=== PATIENT | male | born 1940 | race Caucasian/White ===

== ENCOUNTER 2023-10-13 09:23 | Inpatient (IN) | payer MEDICARE ==
[~2023-10-13] VITALS: Ht 188 cm; Wt 81.7 kg
[~2023-10-13 09:23] MED LIST: DIOVAN; ZETIA; [UNRECOGNIZED DRUG - OTHER]
[2023-10-13] MEDS: IV NORMAL SALINE 1000 ML BAG IV ONE (09:50)
[2023-10-13] MEDS ORDERED: CEFEPIME HCL 1 G VIAL ONE (09:53)
[2023-10-13] MEDS ORDERED: DEXAMETHASONE SOD PHOSPHATE 4 MG INJ ONE (09:54)
[2023-10-13] MEDS ORDERED: AZITHROMYCIN 250 MG TABLET ONE (09:54)
[2023-10-13 09:57] LABS: BASOPHILS % (AUTO) 0.3 % (0.0-2.0); EOSINOPHILS # (AUTO) 0.1 K/uL (0.0-0.7); EOSINOPHILS % (AUTO) 0.4 % (0.0-7.0); HEMATOCRIT 45.2 % (36.7-47.1); HEMOGLOBIN 13.7 g/dL (12.5-16.3); LYMPHOCYTES # (AUTO) 0.6 K/uL (0.8-4.8); MEAN CORPUSCULAR HEMOGLOBIN 28.8 uug (23.8-33.4); MEAN CORPUSCULAR HGB CONC 30 g/dL (32.5-36.3); MEAN CORPUSCULAR VOLUME 95.1 fL (73.0-96.2); MONOCYTES # (AUTO) 2.3 K/uL (0.1-1.30); NEUTROPHILS # (AUTO) 13.1 K/uL (1.8-8.9); NEUTROPHILS % (AUTO) 81.3 % (38.5-71.5); PLATELET COUNT (AUTO) 294 K/uL (152-348); RED BLOOD CELL COUNT(AUTO) 4.76 MIL/uL (4.06-5.63); RED CELL DISTRIBUTION WIDTH 21.8 % (12.1-16.2); WHITE BLOOD COUNT (AUTO) 16.2 K/uL (3.6-10.2)
[2023-10-13 10:00] LABS: *BILIRUBIN,URIN NEGATIVE (NEGATIVE); *BLOOD, URINE 3+ (NEGATIVE); *CLARITY,URINE SLIGHTLY CLOUDY (CLEAR); *COLOR,URINE YELLOW (YELLOW); *KETONES,URINE NEGATIVE (NEGATIVE); *PROTEIN,URINE 2+ (NEGATIVE); *UROBILINOGEN,URINE 0.2 E.U./dl (NORMAL); LEUKOCYTE ESTERASE ,URINE 2+ (NEGATIVE); NITRITE, URINE NEGATIVE (NEGATIVE); UGLUCOSE NEGATIVE (NEGATIVE)
[2023-10-13] MEDS: DEXAMETHASONE SOD PHOSPHATE 4 MG INJ IV ONE (10:02)
[2023-10-13] MEDS: AZITHROMYCIN 250 MG TABLET PO ONE (10:02)
[2023-10-13] MEDS: CEFEPIME HCL 2 G in IV DEXTROSE 5% 100 ML IV ONE (10:02)
[2023-10-13 10:06] LABS: CALCIUM 9.2 mg/dL (8.5-10.1); CARBON DIOXIDE 23 mmol/L (21-32); CHLORIDE 101 mmol/L (98-107); CREATININE 2.6 mg/dL (0.6-1.3); GLUCOSE 240 mg/dL (74-106); POTASSIUM 5.2 mmol/L (3.5-5.1); SODIUM SERUM 138 mmol/L (136-145); UREA NITROGEN, BLOOD 58 mg/dL (7-18)
[2023-10-13 10:07] LABS: DIFFERENTIAL COMMENT 1
[2023-10-13 10:10] LABS: RBC,URINE 20-50 /HPF (0-3); WBC,URINE 80-100 /HPF (0-3)
[2023-10-13 10:11] LABS: BACTERIA,URINE MANY /HPF (NONE SEEN); SQUAMOUS EPITHELIAL CELL,UR FEW /HPF (NONE SEEN)
[2023-10-13 10:17] LABS: LACTIC ACID 6.9 mmol/L (0.4-2.0)
[2023-10-13 10:19] LABS: ALANINE AMINOTRANSFERASE 22 U/L (16-63); ALBUMIN 2.3 g/dL (3.4-5.0); ALKALINE PHOSPHATASE 81 U/L (50-136); ASPARTATE AMINOTRANSFERASE 9 U/L (15-37); BILIRUBIN,DIRECT 0.4 mg/dL (0.0-0.2); NT-PRO BNP 26033 pg/mL (0-125); TOTAL PROTEIN, SERUM 6.6 g/dL (6.4-8.2)
[2023-10-13] MEDS ORDERED: FUROSEMIDE 40 MG/4 ML VIAL ONE (10:48)
[2023-10-13] MEDS ORDERED: NITROGLYCERIN OINT 1 GM PACKET TP ONE (10:48)
[2023-10-13] MEDS: FUROSEMIDE 40 MG/4 ML VIAL IV ONE (10:52)
[2023-10-13] MEDS: NITROGLYCERIN OINT 1 GM PACKET TP ONE (10:52)
[2023-10-13] MEDS ORDERED: HEPARIN/D5W 25000 UNITS/500 ML BAG IV ONE ×2 (11:15→13:30)
[2023-10-13] MEDS ORDERED: HEPARIN SODIUM,PORCINE 5,000 UNITS/ML VIAL ONE (11:27)
[2023-10-13] MEDS: HEPARIN SODIUM,PORCINE 5,000 UNITS/ML VIAL IV ONE (11:32)
[2023-10-13] MEDS: HEPARIN/D5W DRIP 500 ML IV PRN (11:33)
[2023-10-13] MEDS ORDERED: MAGNESIUM HYDROXIDE 30 ML LIQUID UDC PO PRN (11:45)
[2023-10-13] MEDS ORDERED: ONDANSETRON 4 MG/2 ML VIAL IV PRN (11:45)
[2023-10-13] MEDS ORDERED: NEOMY/BACITRA/POLYMYXIN B OINT UD PACKET TP ONE (12:19)
[2023-10-13] MEDS: NEOMY/BACITRA/POLYMYXIN B OINT UD PACKET TP ONE (12:47)
[2023-10-13] MEDS: REMEDY ESSENTIAL ZINC PASTE 113 GM TP PRN (12:50)
[2023-10-13] MEDS ORDERED: ASPIRIN 325 MG TABLET PO ONE (13:25)
[2023-10-13] MEDS ORDERED: PRED2.5T PO (13:40)
[2023-10-13] MEDS ORDERED: METH2.5T PO (13:40)
[2023-10-13 15:50] VITALS: BP 104/67; TEMP 98.7; O2SAT 97
[2023-10-13] MEDS: ASPIRIN 325 MG TABLET PO ONE (15:56)
[2023-10-13] MEDS ORDERED: HEPARIN SODIUM,PORCINE 5,000 UNITS/ML VIAL IV PRN (17:15)
[2023-10-13 20:00] VITALS: BP 92/52; TEMP 98.5; O2SAT 97
[2023-10-13] MEDS: FUROSEMIDE 40 MG/4 ML VIAL IV SCH (21:00)
[2023-10-13 22:09] LABS: BASOPHILS % (AUTO) 0.2 % (0.0-2.0); DIFFERENTIAL COMMENT 0; HEMATOCRIT 40.7 % (36.7-47.1); HEMOGLOBIN 12.5 g/dL (12.5-16.3); LYMPHOCYTES # (AUTO) 0.3 K/uL (0.8-4.8); LYMPHOCYTES % (AUTO) 2.8 % (20.5-51.5); MEAN CORPUSCULAR HEMOGLOBIN 28.8 uug (23.8-33.4); MEAN CORPUSCULAR HGB CONC 31 g/dL (32.5-36.3); MEAN CORPUSCULAR VOLUME 93.6 fL (73.0-96.2); MONOCYTES # (AUTO) 1.7 K/uL (0.1-1.30); MONOCYTES % (AUTO) 15.2 % (0.0-11.0); NEUTROPHILS # (AUTO) 9.3 K/uL (1.8-8.9); NEUTROPHILS % (AUTO) 81.8 % (38.5-71.5); PLATELET COUNT (AUTO) 262 K/uL (152-348); RED BLOOD CELL COUNT(AUTO) 4.35 MIL/uL (4.06-5.63); RED CELL DISTRIBUTION WIDTH 21.3 % (12.1-16.2); WHITE BLOOD COUNT (AUTO) 11.4 K/uL (3.6-10.2)
[2023-10-13 22:24] LABS: ALANINE AMINOTRANSFERASE 20 U/L (16-63); ALKALINE PHOSPHATASE 69 U/L (50-136); ASPARTATE AMINOTRANSFERASE 9 U/L (15-37); BILIRUBIN,TOTAL 0.6 mg/dL (0.2-1.0); CALCIUM 8.9 mg/dL (8.5-10.1); CARBON DIOXIDE 28 mmol/L (21-32); CHLORIDE 103 mmol/L (98-107); CREATININE 2.2 mg/dL (0.6-1.3); GLUCOSE 161 mg/dL (74-106); MAGNESIUM 2.5 mg/dL (1.8-2.4); PHOSPHOROUS 5.7 mg/dL (2.5-4.9); POTASSIUM 5.6 mmol/L (3.5-5.1); SODIUM SERUM 137 mmol/L (136-145); TOTAL PROTEIN, SERUM 5.9 g/dL (6.4-8.2); UREA NITROGEN, BLOOD 63 mg/dL (7-18)
[2023-10-13 23:18] LABS: LYMPHOCYTES % (MANUAL) 5 % (20-40); MONOCYTES % (MANUAL) 12 % (2-10); NEUTROPHILS % (MANUAL) 83 % (42-75); PLATELET ESTIMATE ADEQUATE
[2023-10-14] VITALS: BP 98/57; TEMP 97.8; O2SAT 94
[2023-10-14] MEDS: SODIUM POLYSTYRENE SULFONATE 15 G/60 ML LIQUID UDC PO ONE (02:59)
[2023-10-14 04:00] VITALS: BP 109/65; TEMP 97.5; O2SAT 93
[2023-10-14] MEDS ORDERED: HEPARIN/D5W DRIP 500 ML ONE ×2 (06:35→22:42)
[2023-10-14 06:44] LABS: BASOPHILS % (AUTO) 0.1 % (0.0-2.0); HEMATOCRIT 41.4 % (36.7-47.1); HEMOGLOBIN 12.9 g/dL (12.5-16.3); LYMPHOCYTES # (AUTO) 0.4 K/uL (0.8-4.8); LYMPHOCYTES % (AUTO) 3.5 % (20.5-51.5); MEAN CORPUSCULAR HEMOGLOBIN 29.1 uug (23.8-33.4); MEAN CORPUSCULAR HGB CONC 31 g/dL (32.5-36.3); MEAN CORPUSCULAR VOLUME 93.2 fL (73.0-96.2); MONOCYTES # (AUTO) 1.9 K/uL (0.1-1.30); NEUTROPHILS # (AUTO) 9.6 K/uL (1.8-8.9); NEUTROPHILS % (AUTO) 80.4 % (38.5-71.5); PLATELET COUNT (AUTO) 261 K/uL (152-348); RED BLOOD CELL COUNT(AUTO) 4.44 MIL/uL (4.06-5.63); RED CELL DISTRIBUTION WIDTH 20.3 % (12.1-16.2)
[2023-10-14] MEDS: HEPARIN/D5W DRIP 500 ML IV PRN (06:54)
[2023-10-14 06:57] LABS: DIFFERENTIAL COMMENT 1
[2023-10-14 07:04] LABS: ALANINE AMINOTRANSFERASE 18 U/L (16-63); ALBUMIN 2.1 g/dL (3.4-5.0); ALKALINE PHOSPHATASE 74 U/L (50-136); ASPARTATE AMINOTRANSFERASE 16 U/L (15-37); BILIRUBIN,TOTAL 0.8 mg/dL (0.2-1.0); CALCIUM 9.2 mg/dL (8.5-10.1); CARBON DIOXIDE 28 mmol/L (21-32); CHLORIDE 105 mmol/L (98-107); CREATINE KINASE, TOTAL 149 U/L (39-308); CREATININE 2.1 mg/dL (0.6-1.3); GLUCOSE 152 mg/dL (74-106); MAGNESIUM 2.7 mg/dL (1.8-2.4); SODIUM SERUM 141 mmol/L (136-145); TOTAL PROTEIN, SERUM 6.1 g/dL (6.4-8.2); UREA NITROGEN, BLOOD 66 mg/dL (7-18)
[2023-10-14 08:00] VITALS: BP 101/52; TEMP 97; O2SAT 93
[2023-10-14] MEDS: CEFTRIAXONE 1 G in IV DEXTROSE 5% 50 ML IV SCH (08:40)
[2023-10-14 13:38] LABS: LYMPHOCYTES % (MANUAL) 5 % (20-40); MONOCYTES % (MANUAL) 12 % (2-10); NEUTROPHILS % (MANUAL) 83 % (42-75); PLATELET ESTIMATE ADEQUATE
[2023-10-14 13:39] LABS: ANISOCYTOSIS 1+
[2023-10-14 16:00] VITALS: BP 110/72; TEMP 97.6; O2SAT 93
[2023-10-14 20:00] VITALS: TEMP 97.4
[2023-10-14] MEDS: FUROSEMIDE 20 MG/2 ML VIAL IVP SCH (21:00)
[2023-10-14] MEDS ORDERED: FUROSEMIDE 40 MG/4 ML VIAL IV SCH (21:00)
[2023-10-15] VITALS: TEMP 98.8
[2023-10-15 02:12] LABS: *BILIRUBIN,URIN NEGATIVE (NEGATIVE); *BLOOD, URINE 3+ (NEGATIVE); *CLARITY,URINE SLIGHTLY CLOUDY (CLEAR); *COLOR,URINE YELLOW (YELLOW); *KETONES,URINE NEGATIVE (NEGATIVE); *PROTEIN,URINE 1+ (NEGATIVE); *UROBILINOGEN,URINE 0.2 E.U./dl (NORMAL); LEUKOCYTE ESTERASE ,URINE 1+ (NEGATIVE); NITRITE, URINE NEGATIVE (NEGATIVE); PH,URINE 5.5 (5.0-8.0); UGLUCOSE NEGATIVE (NEGATIVE)
[2023-10-15 02:16] LABS: *CREATININE,URINE 78.1 mg/dL (30-125); *URINE TOTAL PROTEIN RANDOM 74.3 mg/dL (<150/24HR)
[2023-10-15 02:46] LABS: BACTERIA,URINE FEW /HPF (NONE SEEN); MUCUS,URINE MODERATE /LPF (0-FEW); RBC,URINE 20-50 /HPF (0-3); SQUAMOUS EPITHELIAL CELL,UR NONE SEEN /HPF (NONE SEEN)
[2023-10-15 04:00] VITALS: TEMP 98.7
[2023-10-15 06:00] VITALS: TEMP 98.5
[2023-10-15 06:33] LABS: BASOPHILS % (AUTO) 0.5 % (0.0-2.0); EOSINOPHILS # (AUTO) 0.1 K/uL (0.0-0.7); EOSINOPHILS % (AUTO) 1.1 % (0.0-7.0); HEMATOCRIT 42.4 % (36.7-47.1); HEMOGLOBIN 13.3 g/dL (12.5-16.3); LYMPHOCYTES # (AUTO) 0.6 K/uL (0.8-4.8); LYMPHOCYTES % (AUTO) 5.7 % (20.5-51.5); MEAN CORPUSCULAR HEMOGLOBIN 29.3 uug (23.8-33.4); MEAN CORPUSCULAR HGB CONC 31 g/dL (32.5-36.3); MEAN CORPUSCULAR VOLUME 93.6 fL (73.0-96.2); MONOCYTES # (AUTO) 1.7 K/uL (0.1-1.30); MONOCYTES % (AUTO) 17.4 % (0.0-11.0); NEUTROPHILS # (AUTO) 7.5 K/uL (1.8-8.9); NEUTROPHILS % (AUTO) 75.3 % (38.5-71.5); PLATELET COUNT (AUTO) 287 K/uL (152-348); RED BLOOD CELL COUNT(AUTO) 4.53 MIL/uL (4.06-5.63); RED CELL DISTRIBUTION WIDTH 21.5 % (12.1-16.2)
[2023-10-15 06:37] LABS: DIFFERENTIAL COMMENT 1
[2023-10-15 07:06] LABS: CARBON DIOXIDE 27 mmol/L (21-32); CHLORIDE 105 mmol/L (98-107); CREATININE 1.5 mg/dL (0.6-1.3); GLUCOSE 133 mg/dL (74-106); POTASSIUM 4.2 mmol/L (3.5-5.1); SODIUM SERUM 142 mmol/L (136-145); UREA NITROGEN, BLOOD 57 mg/dL (7-18)
[2023-10-15 07:53] LABS: CALCIUM 8.8 mg/dL (8.5-10.1)
[2023-10-15 08:13] VITALS: BP 98/55; TEMP 97.7; O2SAT 90
[2023-10-15] MEDS: ACETAMINOPHEN 325 MG TABLET PO PRN (08:41)
[2023-10-15 09:11] LABS: PTH, INTACT 88 pg/mL (15-65)
[2023-10-15] MEDS: HEPARIN SODIUM,PORCINE 5,000 UNITS/ML VIAL IV PRN (10:38)
[2023-10-15 14:59] VITALS: BP 92/55; TEMP 97.7; O2SAT 91
[2023-10-15 18:42] LABS: EOSINOPHILS % (MANUAL) 2 % (0-8); LYMPHOCYTES % (MANUAL) 11 % (20-40); MONOCYTES % (MANUAL) 18 % (2-10); NEUTROPHILS % (MANUAL) 69 % (42-75)
[2023-10-15 18:43] LABS: ANISOCYTOSIS 2+; PLATELET ESTIMATE ADEQUATE
[2023-10-15] MEDS ORDERED: HEPARIN/D5W DRIP 500 ML ONE (20:38)
[2023-10-15 20:56] VITALS: BP 111/63; TEMP 97.9; O2SAT 95
[2023-10-16 00:13] VITALS: BP 112/70; TEMP 97.8; O2SAT 94
[2023-10-16] MEDS ORDERED: HEPARIN SODIUM,PORCINE 5,000 UNITS/ML VIAL IV PRN (04:45)
[2023-10-16 06:25] LABS: ABG BASE EXCESS 3.1 mmol/L (-2.0-2.0); ABG HCO3 28.3 mmol/L (22.0-26.0); ABG PCO2 45.7 mmHg (35.0-48.0); ABG PO2 65.3 mmHg (75.0-100.0); ABG SITE LEFT RADIAL; ABG TOTAL HEMOGLOBIN 13.9 G/dL (14.0-18.0); AaDO2 92.9 mmHg; COHb 0.7 % (0.0-3.9); MetHb 0.4 % (0.0-1.5); O2Hb 90.9 % (94.0-97.0)
[2023-10-16 06:30] VITALS: BP 110/62; TEMP 97.9; O2SAT 92
[2023-10-16 07:03] LABS: BASOPHILS % (AUTO) 0.3 % (0.0-2.0); EOSINOPHILS # (AUTO) 0.1 K/uL (0.0-0.7); EOSINOPHILS % (AUTO) 0.7 % (0.0-7.0); HEMATOCRIT 42.5 % (36.7-47.1); HEMOGLOBIN 13.1 g/dL (12.5-16.3); LYMPHOCYTES # (AUTO) 0.5 K/uL (0.8-4.8); MEAN CORPUSCULAR HEMOGLOBIN 28.7 uug (23.8-33.4); MEAN CORPUSCULAR HGB CONC 31 g/dL (32.5-36.3); MEAN CORPUSCULAR VOLUME 93.2 fL (73.0-96.2); MONOCYTES # (AUTO) 1.9 K/uL (0.1-1.30); MONOCYTES % (AUTO) 18.9 % (0.0-11.0); NEUTROPHILS # (AUTO) 7.4 K/uL (1.8-8.9); NEUTROPHILS % (AUTO) 75.1 % (38.5-71.5); PLATELET COUNT (AUTO) 290 K/uL (152-348); RED BLOOD CELL COUNT(AUTO) 4.56 MIL/uL (4.06-5.63); RED CELL DISTRIBUTION WIDTH 20.8 % (12.1-16.2); WHITE BLOOD COUNT (AUTO) 9.9 K/uL (3.6-10.2)
[2023-10-16 07:14] LABS: CARBON DIOXIDE 34 mmol/L (21-32); CHLORIDE 103 mmol/L (98-107); CREATININE 1.5 mg/dL (0.6-1.3); DIFFERENTIAL COMMENT 1; GLUCOSE 160 mg/dL (74-106); MAGNESIUM 2.3 mg/dL (1.8-2.4); POTASSIUM 3.7 mmol/L (3.5-5.1); SODIUM SERUM 140 mmol/L (136-145); UREA NITROGEN, BLOOD 46 mg/dL (7-18)
[2023-10-16 07:27] LABS: CALCIUM 8.8 mg/dL (8.5-10.1)
[2023-10-16 07:42] VITALS: BP 100/59; TEMP 97.3; O2SAT 91
[2023-10-16 11:48] VITALS: TEMP 94.8
[2023-10-16 12:24] LABS: ABG BASE EXCESS -3.3 mmol/L (-2.0-2.0); ABG HCO3 20.1 mmol/L (22.0-26.0); ABG PCO2 31.6 mmHg (35.0-48.0); ABG PH 7.421 (7.340-7.440); ABG PO2 52.4 mmHg (75.0-100.0); ABG SITE LEFT RADIAL; ABG TOTAL HEMOGLOBIN 14.6 G/dL (14.0-18.0); AaDO2 88.2 mmHg; COHb 1.5 % (0.0-3.9); MetHb 0.3 % (0.0-1.5); O2Hb 84.4 % (94.0-97.0)
[2023-10-16 13:07] LABS: A/G RATIO 0.7 (0.7-1.7); ALBUMIN 2.2 g/dL (2.9-4.4); ALPHA-1-GLOBULIN 0.4 g/dL (0.0-0.4); ALPHA-2-GLOBULIN 0.9 g/dL (0.4-1.0); BETA GLOBULIN 1.1 g/dL (0.7-1.3); GAMMA GLOBULIN 0.8 g/dL (0.4-1.8); GLOBULIN, TOTAL 3.3 g/dL (2.2-3.9); M-SPIKE Not Observed g/dL (Not Observed)
[2023-10-16 15:06] LABS: BAND % (MANUAL) 5 % (0-10); EOSINOPHILS % (MANUAL) 1 % (0-8); LYMPHOCYTES % (MANUAL) 4 % (20-40); MONOCYTES % (MANUAL) 18 % (2-10); NEUTROPHILS % (MANUAL) 72 % (42-75); PLATELET ESTIMATE ADEQUATE
[2023-10-16 15:44] VITALS: BP 114/58; TEMP 97.1; O2SAT 94
[2023-10-16 20:00] VITALS: BP 119/72; TEMP 98; O2SAT 93
[2023-10-17] VITALS (9 sets, daily range): BP systolic 90–125; BP diastolic 57–71; TEMP 96.3–97.6; O2SAT 90–96
[2023-10-17 05:24] LABS: BASOPHILS # (AUTO) 0.1 K/UL (0.0-0.2); BASOPHILS % (AUTO) 0.8 % (0.0-2.0); EOSINOPHILS # (AUTO) 0.2 K/uL (0.0-0.7); EOSINOPHILS % (AUTO) 1.6 % (0.0-7.0); HEMATOCRIT 41.5 % (36.7-47.1); HEMOGLOBIN 12.8 g/dL (12.5-16.3); LYMPHOCYTES # (AUTO) 0.5 K/uL (0.8-4.8); LYMPHOCYTES % (AUTO) 4.7 % (20.5-51.5); MEAN CORPUSCULAR HEMOGLOBIN 28.5 uug (23.8-33.4); MEAN CORPUSCULAR HGB CONC 31 g/dL (32.5-36.3); MEAN CORPUSCULAR VOLUME 92.2 fL (73.0-96.2); MONOCYTES # (AUTO) 1.7 K/uL (0.1-1.30); MONOCYTES % (AUTO) 16.7 % (0.0-11.0); NEUTROPHILS # (AUTO) 7.8 K/uL (1.8-8.9); NEUTROPHILS % (AUTO) 76.2 % (38.5-71.5); PLATELET COUNT (AUTO) 316 K/uL (152-348); RED CELL DISTRIBUTION WIDTH 20.2 % (12.1-16.2); WHITE BLOOD COUNT (AUTO) 10.2 K/uL (3.6-10.2)
[2023-10-17 05:33] LABS: DIFFERENTIAL COMMENT 1
[2023-10-17 05:37] LABS: CARBON DIOXIDE 33 mmol/L (21-32); CHLORIDE 105 mmol/L (98-107); CREATININE 1.1 mg/dL (0.6-1.3); GLUCOSE 153 mg/dL (74-106); MAGNESIUM 2.2 mg/dL (1.8-2.4); PHOSPHOROUS 3.4 mg/dL (2.5-4.9); SODIUM SERUM 143 mmol/L (136-145); UREA NITROGEN, BLOOD 41 mg/dL (7-18)
[2023-10-17] MEDS: FUROSEMIDE 20 MG/2 ML VIAL IV SCH (09:20)
[2023-10-17] MEDS ORDERED: IOHEXOL 300MG/ML 100 ML INFUS..BTL ONE (12:32)
[2023-10-17] MEDS ORDERED: SWABABLE VALVE TRANSFER SET EA MC ONE (12:36)
[2023-10-17 16:48] LABS: BASOPHILS % (MANUAL) 1 % (0-2); EOSINOPHILS % (MANUAL) 2 % (0-8); LYMPHOCYTES % (MANUAL) 5 % (20-40); MONOCYTES % (MANUAL) 17 % (2-10); NEUTROPHILS % (MANUAL) 75 % (42-75)
[2023-10-17] MEDS: LEVALBUTEROL HCL NEB 0.63 MG/3 ML NEBU NEB PRN (23:43)
== END 2023-10-18 02:12 ==
LOC: ER 09:23 → TRANSITION 11:49 → TELE3 14:24
PROVIDERS: ADMIT Internal Medicine; ATTEND Internal Medicine
PROC: 05HC33Z Insertion of Infusion Device into Left Basilic Vein, Percutaneous Approach (ICD-10-PCS; principal; 2023-10-17)
DX: I11.0 Hypertensive heart disease with heart failure (principal); E43 Unspecified severe protein-calorie malnutrition; I21.A1 Myocardial infarction type 2; G93.41 Metabolic encephalopathy; I50.23 Acute on chronic systolic (congestive) heart failure; J96.01 Acute respiratory failure with hypoxia; N17.0 Acute kidney failure with tubular necrosis; Z66 Do not resuscitate; I26.99 Other pulmonary embolism without acute cor pulmonale; J69.0 Pneumonitis due to inhalation of food and vomit; I82.411 Acute embolism and thrombosis of right femoral vein; N39.0 Urinary tract infection, site not specified; C67.9 Malignant neoplasm of bladder, unspecified; I13.0 Hypertensive heart and chronic kidney disease with heart failure and stage 1 through stage 4 chronic kidney disease, or unspecified chronic kidney disease; R62.7 Adult failure to thrive; Z82.49 Family history of ischemic heart disease and other diseases of the circulatory system; Z83.3 Family history of diabetes mellitus; Z85.51 Personal history of malignant neoplasm of bladder; Z86.16 Personal history of COVID-19; Z87.440 Personal history of urinary (tract) infections; Z87.891 Personal history of nicotine dependence; Z88.0 Allergy status to penicillin; Z95.5 Presence of coronary angioplasty implant and graft; I25.2 Old myocardial infarction; E88.09 Other disorders of plasma-protein metabolism, not elsewhere classified; Z68.23 Body mass index [BMI] 23.0-23.9, adult; E78.5 Hyperlipidemia, unspecified; G93.89 Other specified disorders of brain; S81.811A Laceration without foreign body, right lower leg, initial encounter; X58.XXXA Exposure to other specified factors, initial encounter; Y92.89 Other specified places as the place of occurrence of the external cause; S80.822A Blister (nonthermal), left lower leg, initial encounter; E11.51 Type 2 diabetes mellitus with diabetic peripheral angiopathy without gangrene; I25.10 Atherosclerotic heart disease of native coronary artery without angina pectoris; E11.22 Type 2 diabetes mellitus with diabetic chronic kidney disease; N18.9 Chronic kidney disease, unspecified; M06.9 Rheumatoid arthritis, unspecified; I35.0 Nonrheumatic aortic (valve) stenosis
CPT/HCPCS: 36415; 36600; 70030-TC; 70450; 71045; 76604; 76770; 82533; 82803; 83605; 83735; 83970; 84100; 84132; 84155; 84165; 84300; 84484; 85025; 85730; 86140; 87040; 93005; 93307; A4606; A4663; A6213; C1758; G0378; J0692; J0696; J1100; J1644; J1940; J7040; J7614; Q0144; Q9967